=== PATIENT | female | born 1955 | race Caucasian/White ===

== ENCOUNTER 2022-07-12 08:44 | Outpatient (CLI) | payer OTHER, SELFPAY ==
[2022-07-12 14:24] LABS: Chloride* 106 mmol/L (96-114); Sodium* 138 mmol/L (135-149)
[2022-07-12 14:27] LABS: Blood Urea Nitrogen* 31 mg/dL (7-30); Carbon Dioxide* 24 mmol/L (20-32); Cholesterol* 140 mg/dL (90-199); Creatinine* 1.2 mg/dL (0.5-1.5); Estimated Glomerular Filt Rate 50 ml/min; Glucose* 99 mg/dL (60-115)
[2022-07-12 14:28] LABS: Calcium* 9.8 mg/dL (8.4-10.6); HDL Cholesterol* 38 mg/dL (>=50); LDL Cholesterol Calculated 74 mg/dL (<100); Triglycerides* 142 mg/dL (40-149)
[2022-07-12 14:56] LABS: TSH With Reflex to FT4* 0.933 uIU/mL (0.270-4.200)
== END 2022-07-12 08:45 | disposition home or self-care (01) ==
PROVIDERS: PCP Family Medicine; Visit Provider Family Medicine
DX: Z01.419 Encounter for gynecological examination (general) (routine) without abnormal findings (principal); I10 Essential (primary) hypertension; Z13.29 Encounter for screening for other suspected endocrine disorder; E78.5 Hyperlipidemia, unspecified
CPT/HCPCS: 80048; 80061; 84443

== ENCOUNTER 2023-02-09 11:48 | Outpatient (CLI) | payer OTHER, SELFPAY ==
[2023-02-09 19:30] LABS: PCR FLU A Negative PCR FLU A (Negative); PCR FLU B Negative PCR FLU B (Negative)
[2023-02-09 20:20] LABS: SARS PCR* POSITIVE SARS-CoV-2 (Negative)
== END 2023-02-09 11:49 | disposition home or self-care (01) ==
PROVIDERS: PCP Family Medicine; Visit Provider Nurse Practitioner Family
DX: R50.9 Fever, unspecified (principal)
CPT/HCPCS: 87631

== ENCOUNTER 2023-06-30 10:38 | Outpatient (CLI) | payer OTHER, SELFPAY | END 2023-06-30 10:39 | disposition home or self-care (01) | LOC: RAD 10:39 | PROVIDERS: PCP Family Medicine; Visit Provider Family Medicine | DX: I71.21 Aneurysm of the ascending aorta, without rupture (principal); I51.7 Cardiomegaly; I34.0 Nonrheumatic mitral (valve) insufficiency | CPT/HCPCS: 93306 ==

== ENCOUNTER 2023-07-17 09:45 | Outpatient (CLI) | payer OTHER, SELFPAY | END 2023-07-17 09:46 | disposition home or self-care (01) | PROVIDERS: PCP Family Medicine; Visit Provider Family Medicine | DX: Z00.00 Encounter for general adult medical examination without abnormal findings (principal); E78.5 Hyperlipidemia, unspecified; I10 Essential (primary) hypertension | CPT/HCPCS: 80061 ==